=== PATIENT | female | born 1995 | race Caucasian/White ===

== ENCOUNTER 2016-09-03 19:09 | Emergency (ER) | payer OTHER ==
[2016-09-03 21:13] VITALS: BP 116/75
== END 2016-09-03 21:14 | disposition home or self-care (01) ==
LOC: ED 19:09
DX: S39.012A Strain of muscle, fascia and tendon of lower back, initial encounter (principal); M25.561 Pain in right knee; W18.30XA Fall on same level, unspecified, initial encounter; Y93.89 Activity, other specified; Y92.89 Other specified places as the place of occurrence of the external cause; Y99.8 Other external cause status
CPT/HCPCS: J1885

== ENCOUNTER 2017-05-13 20:58 | Emergency (ER) | payer MEDICAID ==
[2017-05-13 21:41] VITALS: BP 109/69
== END 2017-05-14 00:15 | disposition home or self-care (01) ==
LOC: ED 20:58
DX: G44.209 Tension-type headache, unspecified, not intractable (principal)
CPT/HCPCS: J0780; J1885

== ENCOUNTER 2020-01-16 17:01 | Emergency (ER) | payer OTHER ==
[~2020-01-16] VITALS: Ht 170.2 cm; Wt 61.2 kg
[2020-01-16 17:20] VITALS: Ht 170.2 cm; Wt 61.2 kg
[2020-01-16 17:50] VITALS: BP 134/87
== END 2020-01-16 17:50 | disposition home or self-care (01) ==
LOC: ED 17:01
DX: S80.812A Abrasion, left lower leg, initial encounter (principal); S80.811A Abrasion, right lower leg, initial encounter; W54.0XXA Bitten by dog, initial encounter; Y93.01 Activity, walking, marching and hiking; Y92.89 Other specified places as the place of occurrence of the external cause; Y99.8 Other external cause status
CPT/HCPCS: 90715